=== PATIENT | female | born 1980 | race Two or more races ===

== ENCOUNTER 2018-04-10 02:08 | Emergency (ER) | payer MEDICAID ==
[~2018-04-10] VITALS: Ht 157.5 cm; Wt 104.0 kg
[2018-04-10] MEDS ORDERED: ASPIRIN 81 MG TABLET EC ONE (02:46)
[2018-04-10 03:00] LABS: RAPID INFLUENZA A Negative (Negative); RAPID INFLUENZA B Negative (Negative)
[2018-04-10] MEDS ORDERED: ASPIRIN 81 MG TABLET CHEW PO ONE (03:00)
[2018-04-10 03:07] LABS: BASOPHILS % (AUTO) 1 % (0-1); EOSINOPHILS # (AUTO) 0.08 x10^3/uL (0-0.4); EOSINOPHILS % (AUTO) 1 % (1-7); LYMPHOCYTES # (AUTO) 3.24 x10^3/uL (1-3.4); LYMPHOCYTES % (AUTO) 44 % (22-44); MD NO; MEAN CORPUSCULAR HEMOGLOBIN 29.1 pg (27.0-34.8); MEAN CORPUSCULAR HGB CONC 33.9 g/dL (32.4-35.8); MEAN CORPUSCULAR VOLUME 85.8 fL (80-100); MEAN PLATELET VOLUME 8.9 fL (7.4-10.4); MONOCYTES % (AUTO) 8 % (2-9); NEUTROPHILS # (AUTO) 3.29 x10^3/uL (1.8-6.8); NEUTROPHILS % (AUTO) 45 % (42-75); PLATELET COUNT 273 x10^3/uL (130-400); RED BLOOD COUNT 4.41 x10^6/uL (3.82-5.3); RED CELL DISTRIBUTION WIDTH 13.7 % (9.6-15.2)
[2018-04-10 03:16] LABS: ALBUMIN 3.2 g/dL (3.4-5.0); ANION GAP 7 mmol/L (5-15); CALCIUM 8.6 mg/dL (8.5-10.1); CHLORIDE 107 mmol/L (98-107); CREATININE 0.85 mg/dL (0.55-1.02)
[2018-04-10 03:20] LABS: TROPONIN I < 0.015 ng/mL (0.000-0.045)
[2018-04-10 03:26] LABS: T4 (THYROXINE) 10.5 mcg/dL (4.8-13.9)
[2018-04-10 04:04] VITALS: BP 127/78
== END 2018-04-10 04:12 | disposition home or self-care (01) ==
LOC: ED 03:55
DX: F41.1 Generalized anxiety disorder (principal)
CPT/HCPCS: 36415; 71046; 80048; 82040; 84436; 84443; 84484; 85025; 87400; 93005; 99284